=== PATIENT | female | born 1960 | race Caucasian/White ===

== ENCOUNTER 2018-07-09 08:20 | Emergency (ER) | payer OTHER ==
[~2018-07-09] VITALS: Ht 172.7 cm; Wt 81.2 kg
--- OUTSIDE RECORDS SUMMARY | ~2018-07-09 | XMS | Clinical Summary ---
Demographics + + + | Address | [address] | | | [place] [address] | + + + | Home Phone | | + + + | Preferred Language | Unknown | + + + | Marital Status | Unknown | + + + | Catholic Affiliation | Unknown | + + + | Race | Unknown | + + + | Ethnic Group | Unknown | + + + Author + + + | Author | [facility] | | | and Param[facility]it[facility] | + + + | Organization | [facility] | | | and [facility] | + + + | Address | Unknown | + + + | Phone | Unavailable | + + + Care Team Providers + +------+ + | Care Oil Distributor Name | Role | Phone | + +------+ + PP | Unavailable | + +------+ + Allergies Not on File Medications Not on file Active Problems Not on file Social History + +-------+ +--------+------+ | Tobacco Use | Types | Packs/Day | Years | Date | | | | | Used | | + +-------+ +--------+------+ | Never Assessed | | | | | + +-------+ +--------+------+ + + + | Sex Assigned at | Date Recorded | | | | + + + | Not on file | | + + + + + + + | Job Start Date | Occupation | Industry | + + + + | Not on file | Not on file | Not on file | + + + + + + + + | Travel History | Travel Start | Travel End | + + + + + + | No recent travel history available. | + + Plan of Treatment + + + + + | Health Maintenance | Due Date | Last Done | Comments | + + + + + | Vaccine: | | | | | Dtap/Tdap/Td (1 - | 8 | | | | Tdap) | | | | + + + + + | Cervical Cancer | | | | | Screening (Pap) | 9 | | | + + + + + | Vaccine: Zoster (1 | | | | | of 2) | 9 | | | + + + + + | Vaccine: Influenza | | | | | (Season Ended) | 9 | | | + + + + + Results Not on filefrom Last 3 Months"
--- OUTSIDE RECORDS SUMMARY | ~2018-07-09 | XMS | Clinical Summary ---
Demographics + + + | Address | [address] | | | [place] [address] | + + + | Home Phone | | + + + | Preferred Language | Unknown | + + + | Marital Status | Unknown | + + + | Hoahaoism Affiliation | Unknown | + + + | Race | Unknown | + + + | Ethnic Group | Unknown | + + + Author + + + | Author | [facility] | | | and [facility] | + + + | Organization | [facility] | | | and [facility] | + + + | Address | Unknown | + + + | Phone | Unavailable | + + + Care Team Providers + +------+ + | Care Oil Burner Servicer And Installer Name | Role | Phone | + [...]
[~2018-07-09 08:20] MED LIST: BENADRYL25 MG PO; CALCIUM600 MG PO; GLUCOSAMINE1000 MG PO; IBUPROFEN800 MG PO; K-TAB10 MEQ PO; MELOXICAM15 MG PO; MIRALAX17 GM PO; MULTIVITAMINS1 EAC7 PO; OXYCODONE-ACET1 EAC1 PO; PREDNISONE20 MG PO; SENNA PLUS TAB1 EACH PO; SIMVASTATIN10 MG PO; TRIPLE OMEGA C400 MG PO; VESICARE5 MG PO; VITAMIN D5000 UNIT PO
[2018-07-09] MEDS ORDERED: ATORVASTATIN CA20 MG PO (08:39)
[2018-07-09] MEDS ORDERED: NORCO 5-325 TA1 EACH PO (09:07)
[2018-07-09] MEDS ORDERED: IBU600 MG PO (09:07)
== END 2018-07-09 09:35 | disposition home or self-care (01) ==
LOC: ED 08:20
PROC: 2W3RX1Z Immobilization of Left Lower Leg using Splint (ICD-10-PCS; principal; 2018-07-09)
DX: S82.832A Other fracture of upper and lower end of left fibula, initial encounter for closed fracture (principal); E78.00 Pure hypercholesterolemia, unspecified; Z79.899 Other long term (current) drug therapy; W01.0XXA Fall on same level from slipping, tripping and stumbling without subsequent striking against object, initial encounter
CPT/HCPCS: 29515; 73610; 99283-25

== ENCOUNTER 2022-06-27 05:59 | Day surgery (SDC) | payer OTHER ==
[2022-06-05 07:41] VITALS: BP 119/73
[2022-06-19 10:11] VITALS: BP 11/66
[~2022-06-27] VITALS: Ht 172.7 cm; Wt 81.8 kg
[~2022-06-27 05:59] MED LIST changes: +ATORVASTATIN CA20 MG PO; +IBU600 MG PO; +NORCO 5-325 TA1 EACH PO
[2022-06-27 06:14] VITALS: BP 109/72
--- NOTE | 2022-06-27 08:31 | NUR ---
06/27/22 0831 Leigh Canales 0804-PATIENT ARRIVED TO PACU ON RA RR EVEN PATIENT REACTIVE TO VERBAL STIMULI REMAINS VERY DROWSY NODS HEAD NO TO PAIN DOZES BACK TO SLEEP. IVF INFUSING. DRESSING TO LEFT AXILLA CDI J LUIS DRAIN IN PLACE. SINUS GLO HR 50'S.
[2022-06-27] MEDS ORDERED: IBUPROFEN600 MG PO (08:45)
[2022-06-27] MEDS ORDERED: OXYCODON-ACETA1 EAC2 PO (08:45)
[2022-06-27] MEDS ORDERED: ACETAMINOPHEN500 MG PO (08:46)
--- NOTE | 2022-06-27 08:55 | NUR ---
PT ARRIVES TO THE UNIT VIA STRETCHER FROM PACU. REPORT RECEIVED FROM FERNANDA HANEY. PT REPORTS PAIN 4/10 WITH 7/10 TOLERABLE PER PT, PT STATES NO NEED FOR PRN PAIN MED AT THIS TIME. PT REPORTS NO NAUSEA, DIZZINESS, SOB, N/T AT THIS TIME. PT IS DROWSY BUT ORIENTED, JACOB HAS BEEN CALLED. DRESSING IS C/D/I, NO SIGNS OF BLEEDING. J LUIS DRAIN IN PLACE UNDER RT AXILLARY, DRAINAGE IS SEROUS AND OF SMALL AMOUNT, TO MANUAL SUCTION. VSS, PT 97% ON RA VIA PULSE OX. PILLOW UNDER RT SIDE AT THIS TIME. SCD'S IN PLACE. PT TOLERATING SMALL SIPS OF WATER AT THIS TIME. IV SITE WNL. CALL LIGHT WITHIN REACH, NO FURTHER NEEDS AT THIS TIME.
[2022-06-27 09:02] VITALS: BP 127/67
--- NOTE | 2022-06-27 09:20 | NUR ---
PT ARRIVES AND IS NOW IN ROOM AT BEDSIDE. PT DROWSY BUT ORIENTED. CALL LIGHT WITHIN REACH, NO FURTHER NEEDS AT THIS TIME.
--- NOTE | 2022-06-27 09:55 | NUR ---
IN ROOM FOR ASSESSSMENT AND VS. PT TALKING ON THE PHONE AT THIS TIME. PT IS A&O X4, AT BEDSIDE. DRESSING RT AXILLARY IS C/D/I, NO SIGNS OF BLEEDING AT THIS TIME. J LUIS DRAIN IS INTACT AND TO MANUAL SUCTION, SMALL AMOUNT OF SANGUINOUS DRAINAGE AT THIS TIME. PILLOW UNDER RT SIDE FOR SUPPORT AND LIMITED PRESSURE. PT REPORTS PAIN 5/10, WITH 7/10 TOLERABLE, STATES NO NEED FOR PRNS AT THIS TIME. PT REPORTS NO NAUSEA, DIZZINESS, SOB, N/T AT THIS TIME. CALL LIGHT WITHIN REACH, NO FURTHER NEEDS AT THIS TIME. JELLO PROVIDED.
[2022-06-27 09:56] VITALS: BP 110/72
--- NOTE | 2022-06-27 10:15 | NUR ---
ANSWERED PT CALL LIGHT D/T NEED TO VOID. PT REPORTS PAIN W/MOVEMENT, PRN PERCOCET GIVEN AT THIS TIME (SEE EMAR). THIS RN STANDBY ASSIST W/AMBULATION. J LUIS DRAIN SECURED TO GOWN W/SAFETY PIN. PT REPORTS NO DIZZINESS OR INSTABILITY W/AMBULATION. PT URINE VOID 500 ML CLEAR/YELLOW. PT BACK IN BED. J LUIS DRAIN REMAINS IN PLACE, DRESSING IS C/D/I (NO SIGNS OF BLEEDING). PT REQUESTS MORE JELLO AND CRACKERS, PROVIDED. CALL LIGHT WITHIN REACH, NO FURTHER NEEDS AT THIS TIME.
--- NOTE | 2022-06-27 10:51 | NUR ---
PT ALERT, ORIENTED AND SUPPORTED BY HER JACOB. GAVE ENCOURAGEMENT, ALL QUESTIONS ASKED ANSWERED. JACOB WILL REMAIN FOR DC. PT REQUESTED PRAYER, GAVE BLESSING, WILL FOLLOW.
[2022-06-27 11:11] VITALS: BP 109/78
--- NOTE | 2022-06-27 11:35 | NUR ---
IN PT ROOM FOR ASSESSMENT AND VS. VSS. DRESSING REMAINS C/D/I, REINFORCED W/ADDITIONAL SILK TAPE, NO SIGNS OF BLEEDING AT THIS TIME. SMALL AMOUNT OF SANGUINOUS DRAINAGE IN J LUIS DRAIN, TO MANUAL SUCTION AND REMAINS INTACT AT THIS TIME. PT STATES PAIN IS 0/10 AND NO NAUSEA, DIZZINESS, N/T, OR SOB AT THIS TIME. THIS RN ASSISTS PT W/GETTING DRESSED AND SECURING J LUIS DRAIN TO PERSONAL CLOTHING. PT USES RESTROOM AND STATES NO DIZZINESS OR INSTABILITY W/AMBULATION. DISCHARGE EDUCATION PROVIDED, PT AND STATE VERBAL UNDERSTANDING. IV DC'ED AND GAUZE/COBAN IN PLACE. ALL BELONGINGS IN PT POSSESSION. THIS RN ESCORTS PT OFF OF UNIT VIA WC TO PASSENGER SIDE OF VEHICLE. PT AND STATE NO FURTHER NEEDS OR QUESTIONS.
--- NOTE | 2022-06-29 15:39 | PATH ---
[facility] [address] [place] [address] Signed SPECIMEN(S): A RIGHT POSTERIOR THORAX SPECIMEN SOURCE: A. RIGHT POSTERIOR THORAX CLINICAL HISTORY: Giant soft tissue mass, right posterior thorax. FINAL PATHOLOGIC DIAGNOSIS: Giant soft tissue mass, right posterior thorax, excision: - Benign lipomatous neoplasm; see Comment. COMMENT: Based on the size (greater than 10 cm in greatest dimension), MDM2 FISH studies have been ordered to rule out an atypical lipomatous tumor/well differentiated liposarcoma. These results will be submitted in an addendum. DDF:smn:C2NR MICROSCOPIC EXAMINATION: Histologic sections of all submitted blocks are examined by light microscopy. These findings, together with the gross examination, support the pathologic diagnosis. GROSS DESCRIPTION: The specimen, labeled and designated "Anila, " and designated on the requisition "giant soft tissue mass right posterior thorax," is received in formalin and consists of portion of unoriented yellow-whitney lobulated fatty tissue (12.0 x 8.4 x 3.0 cm). The specimen is inked blue and serially sectioned to reveal a yellow-whitney lobulated fatty cut surface. Armored Car Guard And Driver sections are submitted in cassette [id number]. Additional sections are submitted in cassette [id number] at the request of Dr. Antonio. JOHN (under the direct supervision of a pathologist) The Gross Description was prepared using a voice recognition system. The report was reviewed for accuracy; however, sound-alike word errors, addition and/or deletions may occur. If there is any question about this report, please contact Client Services. PERFORMING LABORATORY: The technical component was performed by [employer], [employer], PATIENT NAME: KATHIA PALACIOS PATHOLOGY DATE OF : 56 REPORT #: [id number] PHYSICIAN: SANIYA RAMOS PCP: JUAN VILLAFUERTE MD REPORT IS CONFIDENTIAL AND NOT TO BE RELEASED WITHOUT AUTHORIZATION [facility] [address] [place], [place] [address] [place] [address] (CLIA# [id number]). Professional interpretation was performed by [facility], [facility], [facility] [place] [address] (CLIA#: [id number]) Diagnostician: Dennys Antonio DO Pathologist Electronically Signed 06/29/2022 Copies: ~ PATIENT NAME: KATHIA PALACIOS PATHOLOGY DATE OF : 56 REPORT #: [id number] PHYSICIAN: SANIYA RAMOS PCP: JUAN VILLAFUERTE MD REPORT IS CONFIDENTIAL AND NOT TO BE RELEASED WITHOUT AUTHORIZATION
--- NOTE | 2022-06-30 15:24 | OR ---
[facility] [address] [place], [place] [address] Signed DATE OF OPERATION: 06/27/2022 SURGEON: Deshawn Ledesma MD PREOPERATIVE DIAGNOSIS: Right posterior thorax soft tissue mass, symptomatic greater than 12 cm. POSTOPERATIVE DIAGNOSIS: Right posterior thorax soft tissue mass, symptomatic greater than 12 cm, probable lipoma. (SUBFASCIAL PROCEDURE: Excision of large right posterior soft tissue mass (subfascial) 12 cm. ANESTHESIA: General LMA, [place] Li CRNA and local 10 mL of 0.25% Marcaine with epinephrine. INDICATION: This 61-year-old white woman is a patient Dr. Peter Trejo and known to me from the past. She has had a right posterior thorax soft tissue mass that has increased in size over time and is now painful when reclining or sitting. She has had no drainage from it. Most likely it represents the giant lipoma. She is admitted at this time to undergo excision of the mass, understands the risks of bleeding, infection, recurrence, and other unforeseen complications. She understands a drain may be required as a large empty space may result from excision, understands and she wished to proceed. FINDINGS: Indeed the lesion was most consistent with a benign lipomatous mass. It was completely excised. Extended deep to the latissimus fascia and more medially toward the paraspinous muscles. Complete excision was undertaken. It did not appear dependent through the thoracic cavity, however. PROCEDURE IN DETAIL: The patient was brought to the operating room, given a general LMA type anesthetic. Preoperative antibiotic Ancef was given. Sequential compression device stockings used and heparin subcutaneously administered. With all due care, she was rotated to a lateral position left side down with axillary roll. A beanbag device was used to secure her body to the table. Careful padding of pressure points including extremities was undertaken. The mass was inferior to the deltoid in the posterior thorax somewhat over the scapula itself in the posterior lateral aspect. The area was prepared with a chlorhexidine solution and draped sterilely. Given the natural skin creases located in Electronically Signed By: DESHAWN LEDESMA MD 06/30/22 1524 PATIENT NAME: KATHIA PALACIOS OPERATIVE REPORT DATE OF : 56 REPORT #: [id number] PHYSICIAN: DESHAWN LEDESMA MD PCP: JUAN TREJO MD REPORT IS CONFIDENTIAL AND NOT TO BE RELEASED WITHOUT AUTHORIZATION [facility] [address] [place], [place] [address] Signed the area incision was made directly over the mass and dissection was carried through the dermis with electrocautery. A well encapsulated lipomatous appearing mass was noted. This was from surrounding tissue with blunt and electrocautery dissection anteriorly. Further dissection deep showed it to go both beneath the superficial fascial layer down to the posterior thoracic fascia itself. It was dissected free from the latissimus dorsi muscle more fully and extended more medially to near the paraspinous muscles. It did not penetrate through the thoracic cavity, so far as could be told. It was excised completely with meticulous care, used for hemostasis. The wound was irrigated. Given the large empty space, it remained a 7 mm flat Osbaldo drain was placed exiting the anterior aspect. Hemostasis was assured with electrocautery more fully and the deep soft tissues were reapproximated with interrupted 2-0 Vicryl. The skin closed with running subcuticular 3-0 Vicryl. The drain was secured to the skin with nylon suture. 10 mL of 0.25% Marcaine had been injected into the wound edges deeply and superficially for postoperative analgesic benefit. The skin was closed with running subcuticular 3-0 Vicryl and Steri-Strips were applied as was an Acticoat dressing. A gauze was applied to the drain site at its exit point. The patient was carefully returned to supine position, subsequently had extubated and taken to recovery room in good condition having suffered no complications. Sponge, needle, and instrument counts were reported as correct x3. MD ANGELO Sena/MODL /[id number] cc: Juan Trejo MD Copies: JUAN TREJO MD ~ Electronically Signed By: DESHAWN LEDESMA MD 06/30/22 1524 PATIENT NAME: KATHIA PALACIOS OPERATIVE REPORT DATE OF : 56 REPORT #: [id number] PHYSICIAN: DESHAWN LEDESMA MD PCP: JUAN TREJO MD REPORT IS CONFIDENTIAL AND NOT TO BE RELEASED WITHOUT AUTHORIZATION
== END 2022-06-27 11:40 | disposition home or self-care (01) ==
LOC: DS 05:59
PROVIDERS: ATTEND Surgery
PROC: 0KBH0ZZ Excision of Right Thorax Muscle, Open Approach (ICD-10-PCS; principal; 2022-06-27 07:30)
DX: D17.1 Benign lipomatous neoplasm of skin and subcutaneous tissue of trunk (principal); K57.30 Diverticulosis of large intestine without perforation or abscess without bleeding; E66.9 Obesity, unspecified; E78.5 Hyperlipidemia, unspecified; Z80.0 Family history of malignant neoplasm of digestive organs
CPT/HCPCS: 00300; J0690; J1100; J1644; J1885; J2001; J2405; J2704; J3010; J3475; J7121

== ENCOUNTER 2023-08-12 08:23 | Emergency (ER) | payer OTHER ==
[~2023-08-12] VITALS: Ht 172.7 cm; Wt 85.8 kg
[~2023-08-12 08:23] MED LIST changes: +ACETAMINOPHEN500 MG PO; +IBUPROFEN600 MG PO; +OXYCODON-ACETA1 EAC2 PO
[2023-08-12] MEDS ORDERED: HYDROCODONE/ACETA 7.5/325 TAB PO ONE (08:45)
[2023-08-12] MEDS ORDERED: IBUPROFEN 600 MG TAB PO ONE (08:45)
[2023-08-12 09:30] VITALS: BP 139/90
== END 2023-08-12 09:25 | disposition home or self-care (01) ==
LOC: ED 08:23
DX: S61.421A Laceration with foreign body of right hand, initial encounter (principal); E78.00 Pure hypercholesterolemia, unspecified; W01.0XXA Fall on same level from slipping, tripping and stumbling without subsequent striking against object, initial encounter; Z88.1 Allergy status to other antibiotic agents; Z79.899 Other long term (current) drug therapy
CPT/HCPCS: 12002; 73130; 99283-25; A9270

== ENCOUNTER 2023-11-04 11:18 | Emergency (ER) | payer OTHER ==
[~2023-11-04] VITALS: Ht 172.7 cm; Wt 88.0 kg
[2023-11-04] MEDS ORDERED: LORazepam 1 MG TAB PO ONE (12:15)
[2023-11-04] MEDS ORDERED: KETOROLAC TROMETHAMINE 30 MG/ML VIAL IM ONE (12:15)
[2023-11-04] MEDS ORDERED: ATIVAN0.5 MG PO (14:32)
[2023-11-04] MEDS ORDERED: HYDROmorphone HCL 1 MG/ML SYR IV PRN (16:45)
[2023-11-04] MEDS ORDERED: HYDROmorphone HCL 1 MG/ML SYR IM ONE (16:45)
[2023-11-04 18:55] VITALS: BP 127/66
== END 2023-11-04 18:55 | disposition home or self-care (01) ==
LOC: ED 11:18
DX: M62.830 Muscle spasm of back (principal); Z88.8 Allergy status to other drugs, medicaments and biological substances; Z79.899 Other long term (current) drug therapy
CPT/HCPCS: 96372; 99283; A9270-GY; J1170; J1885